=== PATIENT | female | born 1985 | race African-American/Black ===

== ENCOUNTER 2020-02-14 19:12 | Emergency (ER) | payer SELFPAY ==
[~2020-02-14] VITALS: Ht 162.6 cm; Wt 97.5 kg
[2020-02-14 19:37] VITALS: BP 149/84
--- NOTE | 2020-02-14 19:43 | Emergency Room Report ---
History of Present Illness General Chief Complaint: Vomiting Source: Patient Present Illness HPI 34-year-old female G5, presents with right lower quadrant pain patient states she had a tubal ligation earlier this year in that area for an ectopic endorses crampy abdominal pain nausea vomiting x1 day no chest pain or shortness of breath no fevers no chills no dysuria patient presents for evaluation no aggravating relieving factors severity is mild Allergies: Coded Allergies: No Known Allergies (Unverified , 02/14/20) COVID-19 Screening Contact w/high risk pt: No Recent Travel to affected area: No Experienced COVID-19 symptoms?: No Patient History Past Medical History: see triage record Last Menstrual Period: 12/27 Now: Yes : 4 Para: 2 Reviewed Nursing Documentation: PMH: Agreed; PSxH: Agreed Nursing Documentation-PMH Past Medical History: No Stated History Review of Systems All Other Systems: negative except mentioned in HPI Physical Exam Vital Signs Date Time Temp Pulse Resp B/P (MAP) Pulse Ox O2 Delivery O2 Flow Rate FiO2 02/14/20 19:23 98.8 103 20 149/84 (105) 97 Room Air Sp02 EP Interpretation: reviewed, normal General Appearance: well appearing, no apparent distress, alert Head: normocephalic, atraumatic Eyes: bilateral eye PERRL, bilateral eye EOMI ENT: uvula midline, moist mucus membranes Neck: supple, thyroid normal, supple/symm/no masses Respiratory: lungs clear, no respiratory distress, no retraction, no accessory muscle use Cardiovascular #1: normal peripheral pulses, regular rate, rhythm, no edema, no gallop, no murmur Gastrointestinal: non tender, soft, no guarding, no rebound Musculoskeletal: normal inspection Neurologic: alert, oriented x3 Psychiatric: mood/affect normal Skin: no rash, warm/dry Medical Decision Making Diagnostic Impression: Primary Impression: Threatened Additional Impression: UTI (urinary tract infection) Qualified Codes: N30.00 - Acute cystitis without hematuria ER Course 34-year-old female presents with vague complaints of lower abdominal pain differential diagnosis includes appendicitis diverticulitis, threatened Labs unremarkable positive hCG, ultrasound shows a no evidence of an embryonic pole or heart tones concerning for failed intrauterine Counseled patient report was provided to the patient 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, and get a repeat ultrasound Laboratory Tests Test 02/14/20 20:05 White Blood Count 9.5 K/UL (4.8-10.8) Red Blood Count 4.35 M/UL (4.20-5.40) Hemoglobin 12.9 G/DL (12.0-16.0) Hematocrit 40.8 % (37.0-47.0) Mean Corpuscular Volume 94 FL (80-99) Mean Corpuscular Hemoglobin 29.7 PG (27.0-31.0) Mean Corpuscular Hemoglobin Concent 31.6 G/DL (32.0-36.0) L Red Cell Distribution Width 12.8 % (11.6-14.8) Platelet Count 290 K/UL (150-450) Mean Platelet Volume 8.7 FL (6.5-10.1) Neutrophils (%) (Auto) 64.3 % (45.0-75.0) Lymphocytes (%) (Auto) 27.8 % (20.0-45.0) Monocytes (%) (Auto) 5.4 % (1.0-10.0) Eosinophils (%) (Auto) 2.1 % (0.0-3.0) Basophils (%) (Auto) 0.6 % (0.0-2.0) Urine Color Yellow Urine Appearance Clear Urine pH 5 (4.5-8.0) Urine Specific [place] 1.025 (1.005-1.035) Urine Protein 1+ (NEGATIVE) H Urine Glucose (UA) Negative (NEGATIVE) Urine Ketones 1+ (NEGATIVE) H Urine Blood Negative (NEGATIVE) Urine Nitrite Negative (NEGATIVE) Urine Bilirubin Negative (NEGATIVE) Urine Urobilinogen 1 MG/DL (0.0-1.0) H Urine Leukocyte Esterase 1+ (NEGATIVE) H Urine RBC 0 /HPF (0 - 2) Urine WBC 2-4 /HPF (0 - 2) Urine Squamous Epithelial Cells Few /LPF (NONE/OCC) Urine Bacteria Occasional /HPF (NONE) Urine HCG, Qualitative Positive (NEGATIVE) Sodium Level 139 MMOL/L (136-145) Potassium Level 3.6 MMOL/L (3.5-5.1) Chloride Level 106 MMOL/L (98-107) Carbon Dioxide Level 23 MMOL/L (21-32) Anion Gap 10 mmol/L (5-15) Blood Urea Nitrogen 10 mg/dL (7-18) Creatinine 0.9 MG/DL (0.55-1.30) Estimated Glomerular Filtration Rate > 60 mL/min (>60) Glucose Level 95 MG/DL (74-106) Calcium Level 9.0 MG/DL (8.5-10.1) Total Bilirubin 0.1 MG/DL (0.2-1.0) L Aspartate Amino Transferase (AST) 15 U/L (15-37) Alanine Aminotransferase (ALT) 19 U/L (12-78) Alkaline Phosphatase 33 U/L (46-116) L Total Protein 7.7 G/DL (6.4-8.2) Albumin 3.3 G/DL (3.4-5.0) L Globulin 4.4 g/dL Albumin/Globulin Ratio 0.8 (1.0-2.7) L Lipase 174 U/L (73-393) Human Chorionic Gonadotropin, Quant Pending CT/MRI/US Diagnostic Results CT/MRI/US Diagnostic Results : Impression Procedure: US Pelvic Transabdominal EXAM: US First Trimester , Transabdominal and Transvaginal CLINICAL HISTORY: ABD PAIN TECHNIQUE: Real-time transabdominal and transvaginal obstetrical ultrasound of the maternal pelvis and a first trimester with image documentation. Transvaginal imaging was used for better evaluation of the fetus and adnexa. COMPARISON: No relevant prior studies available. FINDINGS: Gestation: A chorionic sac with yolk sac is seen within the uterus. The mean sac diameter measures 2.2 cm which corresponds to an estimated gestational age of 6 weeks and 3 days. No evidence for embryonic pole or heart tones at this time. The findings are suspicious for a failed intrauterine . Follow-up ultrasound in 7-10 days to assess for viability is recommended. Placenta/amniotic fluid: Cannot be adequately evaluated due to the early gestational age. Uterus/cervix: Unremarkable. No myometrial mass. Ovaries: The left ovary is unremarkable and measures 3.0 x 1.9 x 2.5 cm. The left ovary demonstrates vascular flow. The right ovary is unremarkable and measures 2.7 x 2.2 x 2.8 cm. The right ovary demonstrates vascular flow. No mass. Free fluid: No evidence for free fluid or adnexal mass. IMPRESSION: A chorionic sac with yolk sac is seen within the uterus. The mean sac diameter measures 2.2 cm which corresponds to an estimated gestational age of 6 weeks and 3 days. No evidence for embryonic pole or heart tones at this time. The findings are suspicious for a failed intrauterine . Follow-up ultrasound in 7-10 days to assess for viability is recommended. Dictated By: Robbin Callejas MD Electronically Signed By: Robbin Callejas MD Signed Date/Time 02/14/202043 CC: Jacob Broewr MD Last Vital Signs Date Time Temp Pulse Resp B/P (MAP) Pulse Ox O2 Delivery O2 Flow Rate FiO2 02/14/20 19:37 98.8 98 20 149/84 97 Room Air Disposition: HOME, SELF-CARE Scripts Cephalexin* (KEFLEX*) 500 Mg Tablet 500 MG ORAL EVERY 6 HOURS, #20 CAP Prov: Jacob Brower MD 02/14/20 Referrals: [facility] Patient Instructions: Threatened Miscarriage, [id number] Additional Instructions: The patient was provided with discharge instructions, notified to follow-up with a primary care doctor and or specialist in the next 24-48 hours, and to return to the ED if they have worsening of their symptoms. Please note that this report is being documented using [employer] technology. This can lead to erroneous entry secondary to incorrect interpretation by the dictating instrument. Jacob Brower MD February 14, 2020 19:43
[2020-02-14 20:30] LABS: APPEARANCE,URINE CLEAR; BILIRUBIN, URINE NEGATIVE (NEGATIVE); GLUCOSE, URINE (UA) NEGATIVE (NEGATIVE); KETONES,URINE 1+ (NEGATIVE); LEUKOCYTE ESTERASE ,URINE 1+ (NEGATIVE); NITRITE,URINE NEGATIVE (NEGATIVE); PH,URINE 5 (4.5-8.0); PROTEIN,URINE 1+ (NEGATIVE); UROBILINOGEN,URINE 1 MG/DL (0.0-1.0)
[2020-02-14 20:33] LABS: ANION GAP 10 mmol/L (5-15); BLOOD UREA NITROGEN 10 mg/dL (7-18); CARBON DIOXIDE 23 MMOL/L (21-32); CHLORIDE 106 MMOL/L (98-107); CREATININE 0.9 MG/DL (0.55-1.30); POTASSIUM 3.6 MMOL/L (3.5-5.1); SODIUM 139 MMOL/L (136-145)
[2020-02-14 20:34] LABS: COLOR,URINE YELLOW
[2020-02-14 20:38] LABS: ALANINE AMINOTRANSFERASE 19 U/L (12-78); ALBUMIN 3.3 G/DL (3.4-5.0); ALBUMIN/GLOBULIN RATIO 0.8 (1.0-2.7); ALKALINE PHOSPHATASE 33 U/L (46-116); ASPARTATE AMINO TRANSFERASE 15 U/L (15-37); BILIRUBIN,TOTAL 0.1 MG/DL (0.2-1.0)
[2020-02-14 20:43] LABS: BASOPHILS % (AUTO) 0.6 % (0.0-2.0); EOSINOPHILS % (AUTO) 2.1 % (0.0-3.0); HEMATOCRIT 40.8 % (37.0-47.0); HEMOGLOBIN 12.9 G/DL (12.0-16.0); LYMPHOCYTES % (AUTO) 27.8 % (20.0-45.0); MEAN CORPUSCULAR VOLUME 94 FL (80-99); MONOCYTES % (AUTO) 5.4 % (1.0-10.0); NEUTROPHILS % (AUTO) 64.3 % (45.0-75.0); PLATELET COUNT 290 K/UL (150-450); RED BLOOD COUNT 4.35 M/UL (4.20-5.40); RED CELL DISTRIBUTION WIDTH 12.8 % (11.6-14.8); WHITE BLOOD COUNT 9.5 K/UL (4.8-10.8)
--- NOTE | 2020-02-14 20:45 | Diagnostic Imaging Report ---
EXAM: US First Trimester , Transabdominal and Transvaginal CLINICAL HISTORY: ABD PAIN TECHNIQUE: Real-time transabdominal and transvaginal obstetrical ultrasound of the maternal pelvis and a first trimester with image documentation. Transvaginal imaging was used for better evaluation of the fetus and adnexa. COMPARISON: No relevant prior studies available. FINDINGS: Gestation: A chorionic sac with yolk sac is seen within the uterus. The mean sac diameter measures 2.2 cm which corresponds to an estimated gestational age of 6 weeks and 3 days. No evidence for embryonic pole or heart tones at this time. The findings are suspicious for a failed intrauterine . Follow-up ultrasound in 7-10 days to assess for viability is recommended. Placenta/amniotic fluid: Cannot be adequately evaluated due to the early gestational age. Uterus/cervix: Unremarkable. No myometrial mass. Ovaries: The left ovary is unremarkable and measures 3.0 x 1.9 x 2.5 cm. The left ovary demonstrates vascular flow. The right ovary is unremarkable and measures 2.7 x 2.2 x 2.8 cm. The right ovary demonstrates vascular flow. No mass. Free fluid: No evidence for free fluid or adnexal mass. IMPRESSION: A chorionic sac with yolk sac is seen within the uterus. The mean sac diameter measures 2.2 cm which corresponds to an estimated gestational age of 6 weeks and 3 days. No evidence for embryonic pole or heart tones at this time. The findings are suspicious for a failed intrauterine . Follow-up ultrasound in 7-10 days to assess for viability is recommended.
[2020-02-14] MEDS ORDERED: CEPHALEXIN500 M1 ORAL (20:54)
[2020-02-14 21:00] VITALS: BP 149/84
== END 2020-02-14 21:00 | disposition home or self-care (01) ==
LOC: EMR 19:30
DX: O20.0 Threatened abortion (principal); N30.00 Acute cystitis without hematuria; Z3A.01 Less than 8 weeks gestation of pregnancy
CPT/HCPCS: 36415; 76830; 76856; 80053; 81003; 81025; 83690; 84702; 85025; 86850; 86900; 86901; 96361; 96374; 99284; J2405; J7030